=== PATIENT | female | born 1985 | race Caucasian/White ===

== ENCOUNTER 2017-04-13 10:25 | Outpatient (CLI) | payer BC ==
--- NOTE | 2017-04-13 11:38 | RAD ---
KUB: DATE: 04/13/17. COMPARISON: None. HISTORY: Renal stone disease. FINDINGS: The bowel gas pattern is nonobstructed. There are no calcifications appreciated in either upper quadrant to suggest significant intrarenal st one disease. There is a nonspecific subcentimeter calcification in the left hemipelvis measuring in the 3 mm range, which could be vascular in nature. Distal left ureteral stone cannot be fully exclud ed in the proper clinical setting. An IUD overlies the pelvis just to the right of midline. IMPRESSION: No upper abdominal calcifications are seen. Nonspecific 3 mm calcification in the left hemipelvis no job. POS: [facility]
== END 2017-04-13 10:26 | disposition home or self-care (01) ==
LOC: RAD 10:25
PROVIDERS: ATTEND Urology
DX: Z87.442 Personal history of urinary calculi (principal)
CPT/HCPCS: 74018; 81001; 87086

== ENCOUNTER 2021-11-21 07:10 | Day surgery (SDC) | payer SELFPAY ==
[~2021-11-21 07:10] MED LIST: Fentanyl 100 MCG/2 ML VIAL ONE; Midazolam HCl 5 mg/5 ml Vial ONE
[2021-11-21] MEDS ORDERED: Bupivacaine 0.25% HCL 30 ML VIAL ONE (09:08)
[2021-11-21] MEDS ORDERED: EPINEPHrine 1 MG/ML AMP ONE (09:08)
[2021-11-21] MEDS ORDERED: Lidocaine 1% PF 5 ML VIAL ONE (09:20)
[2021-11-21] MEDS ORDERED: PROPOFOL 200 MG/20 ML VIAL ONE (09:20)
[2021-11-21] MEDS ORDERED: Succinylcholine 200 MG/10 ml SYRINGE FS ONE (09:20)
[2021-11-21] MEDS ORDERED: Ondansetron PF 4 MG/2 ML Vial ONE (09:20)
[2021-11-21] MEDS ORDERED: Ketorolac Tromethamine 30 MG/ML VIAL ONE (09:20)
[2021-11-21] MEDS ORDERED: Dexamethasone 20 MG/5 ML VIAL ONE (09:20)
[2021-11-21] MEDS ORDERED: metroNIDAZOLE 500 MG/100 ML BAG ONE (09:59)
[2021-11-21] MEDS ORDERED: SUGAMMADEX SODIUM 200 MG/2 ML VIAL ONE (10:08)
[2021-11-21] MEDS ORDERED: Meperidine HCl/PF 25 MG/ML VIAL ONE (11:02)
[2021-11-21] MEDS ORDERED: Fentanyl 100 MCG/2 ML VIAL ONE ×2 (11:03→12:17)
[2021-11-21] MEDS ORDERED: Promethazine HCl 25 MG/ML VIAL ONE (11:06)
== END 2021-11-21 14:08 | disposition home or self-care (01) ==
LOC: SDC 07:10
PROVIDERS: ATTEND Surgery
PROC: 0DTJ4ZZ Resection of Appendix, Percutaneous Endoscopic Approach (ICD-10-PCS; principal; 2021-11-21)
DX: K35.80 Unspecified acute appendicitis (principal); K38.8 Other specified diseases of appendix; K21.9 Gastro-esophageal reflux disease without esophagitis; Z87.442 Personal history of urinary calculi; F17.200 Nicotine dependence, unspecified, uncomplicated; Z98.890 Other specified postprocedural states
CPT/HCPCS: 88304; 93005; 93010; J0171; J1100; J1885; J2175; J2250; J2405; J2550; J2704; J3010; S0020